=== PATIENT | female | born 1975 | race Hispanic/Latino ===

== ENCOUNTER 2018-12-30 11:43 | Observation (INO) | payer OTHER ==
[~2018-12-30] VITALS: Ht 147.3 cm; Wt 68.3 kg
--- OUTSIDE RECORDS SUMMARY | 2018-12-30 11:45 | XMS REPORT | Continuity of Care Document ---
Author Author [facility] Interface Address Unknown Phone Unavailable Problems Problem Status Onset Date Classification Date Reported Comments Source MASS Active 03/18/2016 [facility] ROUTINE Active 03/02/2016 [facility] SCREENINGN Active 02/04/2015 [facility] Final: Other Screening Mammogram 02/15/2015 [facility] Medications Medication Details Route Status Patient Instructions Ordering Provider Order Date Source Allergies, Adverse Reactions, Alerts Substance Category Reaction Severity Reaction type Status Date Reported Comments Source Immunizations Immunization Date Given Site Status Last Updated Comments Source Results Order Name Results Value Reference Range Date Interpretation Comments Source Breast Complete Uni US Breast Complete Uni US - BREAST COMPLETE UNI US/R ULTRASOUND OF RIGHT BREAST AND RIGHT AXILLA: 03/18/2016 CLINICAL: Mass abnormal mammogram, mammographic nodule/density. Comparison is made to exams dated: 03/18/2016 mammogram, 02/12/2015 mammogram and 03/12/2016 mammogram - [facility]. Color flow and real-time ultrasound of the right breast and axilla were performed. Lema scale images of the real-time examination were reviewed. All 4 quadrants, the retroareolar region and axilla are evaluated in this exam. There is a benign 1.3 cm oval shaped cyst with a circumscribed margin with internal echoes and posterior enhancement right breast at 9 o'clock that correlates with mammography. No abnormalities were seen sonographically in the right axilla. IMPRESSION: BENIGN There is no sonographic evidence of malignancy. Return to annual mammogram screening schedule is recommended. The results were reviewed with the patient. Matilde Jack M.D. jt/:03/18/2016 14:19:34 Ear Machine Operator: Sherry Dickey, [facility] This exam was dictated and interpreted by [id number] for [facility] [place]. letter sent: Normal exam Ultrasound BI-RADS: 2 Benign 03/18/2016 - - Read by: Matilde Jack MD Dictated Date/time: 03/18/16 14:19 Electronically Signed by: Matilde Jack MD 03/18/16 14:19 FINAL REPORT [facility] Digital Mammo DX Uni MA Digital Mammo DX Uni MA - DIGITAL MAMMO DX UNI MA/R UNILATERAL RIGHT DIGITAL DIAGNOSTIC MAMMOGRAM WITH CAD: 03/18/2016 CLINICAL: Mammographic Abnormality. Current study was evaluated with a Computer Aided Detection (CAD) system. Comparison is made to exams dated: 03/12/2016 mammogram and 02/12/2015 mammogram - [facility]. The tissue of the right breast is heterogeneously dense, which could obscure detection of small masses. There are benign appearing calcifications in the right breast. There also are benign appearing densities in the right breast. There is a mass in the right breast at 9 o'clock posterior depth. This correlates with the prior exam. No other significant masses or calcifications are seen in the breast. IMPRESSION: INCOMPLETE: NEEDS ADDITIONAL IMAGING EVALUATION The mass in the right breast is indeterminate. An ultrasound is recommended. SUMMARY: Ultrasound will be performed at this time; please see dedicated separate report. Matilde santana/penfausto:03/18/2016 14:12:57 Ear Machine Operator: Ani Carbone, [facility] This exam was dictated and interpreted by [id number] for [facility]. Mammogram BI-RADS: 0 Indeterminate 03/18/2016 - - Read by: Matilde Jack MD Dictated Date/time: 03/18/16 14:12 Electronically Signed by: Matilde Jack MD 03/18/16 14:12 FINAL REPORT [facility] Pelvis w Pelvis Transvaginal US Pelvis w Pelvis Transvaginal US Transabdominal and Transvaginal Pelvic ultrasound, 03/12/2016 10:46 AM CDT Ordering Physician: Oskar Vallecillo MD CLINICAL INDICATION: pelvic pain; 41-year-old female; LMP 03/02/2016; left-sided pelvic pain for 4 weeks COMPARISON: None TECHNIQUE: Real-time, grayscale and color Doppler sonographic examination was performed of the pelvis via transabdominal and transvaginal method. FINDINGS: Transabdominal imaging reveals the uterus to measure 10.9 x 4.1 x 6.5 cm. Transvaginal imaging demonstrates endometrial stripe thickness measuring 0.6 cm. No abnormal mass is visualized within the endometrial canal. Cervical nabothian cysts are present. Bilateral ovaries are normal in size and echogenicity. Right ovary measures 3 x 1.7 x 1.5 cm. Left ovary measures 3.3 x 1.9 x 2.2 cm, contains a mild debris-containing cyst measuring 1.8 cm. Normal vascularity is present in the ovaries. No free fluid is present in the pelvic cul-de-sac. IMPRESSION: Left ovarian mildly complicated debris-containing 1.8 cm cyst SL: [id number] 03/12/2016 - - Read by: Swetha Dillon MD Dictated Date/time: 03/12/16 16:40 Electronically Signed by: Swetha Dillon MD 03/12/16 16:42 FINAL REPORT [facility] Digital Mammo Screening Bethanie DE Digital Mammo Screening Bethanie DE - DIGITAL MAMMO SCREENING BETHANIE MA BILATERAL DIGITAL SCREENING MAMMOGRAM WITH CAD: 03/12/2016 CLINICAL: Routine. Current study was evaluated with a Computer Aided Detection (CAD) system. Comparison is made to exam dated: 02/12/2015 mammogram - [facility]. The tissue of both breasts is heterogeneously dense, which could obscure detection of small masses. There are benign appearing calcifications in both breasts. There also are benign appearing densities in both breasts. There is a possible mass in the right breast at 9 o'clock posterior depth. No other significant masses, calcifications, or other findings are seen in either breast. IMPRESSION: INCOMPLETE: NEEDS ADDITIONAL IMAGING EVALUATION The possible mass in the right breast is indeterminate. Right diagnostic mammogram with possible ultrasound is recommended (spot compression and lateral views). Matilde santana/penrad:03/15/2016 11:02:12 Ear Machine Operator: Lisa rWay, [facility] This exam was dictated and interpreted by [id number] for [facility]. letter sent: Additional Imaging Mammogram BI-RADS: 0 Indeterminate 03/12/2016 - - Read by: Matilde Jack MD Dictated Date/time: 03/15/16 11:02 Electronically Signed by: Matilde Jack MD 03/15/16 11:02 FINAL REPORT [facility] Digital Mammo Screening Bethanie MA Digital Mammo Screening Bethanie MA - DIGITAL MAMMO SCREENING BETHANIE MA BILATERAL FIRST EVER DIGITAL SCREENING MAMMOGRAM WITH CAD: 02/12/2015 CLINICAL: Routine. Current study was evaluated with a Computer Aided Detection (CAD) system. There are no comparison films available as this is the patient's baseline mammogram. The tissue of both breasts is heterogeneously dense, which could obscure detection of small masses. There are benign appearing calcifications in both breasts. There also are benign appearing densities in both breasts. No significant masses, calcifications, or other findings are seen in either breast. IMPRESSION: BENIGN There is no mammographic evidence of malignancy. A 1 year screening mammogram is recommended. Aspen Carlton M.D. ap/penrad:02/12/2015 10:42:57 Ear Machine Operator: Akilah Nance, [facility] This exam was dictated and interpreted by [id number] for [facility] [place]. letter sent: Normal [place] Mammogram BI-RADS: 2 Benign 02/12/2015 - - Read by: Aspen Carlton MD Dictated Date/time: 02/12/15 10:42 Electronically Signed by: Aspen Carlton MD 02/12/15 10:42 FINAL REPORT [facility] Vital Signs Vital Sign Value Date Comments Source Encounters Location Location Details Encounter Type Encounter Number Reason For Visit Attending Provider ADM Date DC Date Status Source [facility] Outpatient [id number] [place] Asum[place] 02/12/2015 02/13/2015 [facility] Outpatient [id number] Oskar Asumjareda 03/12/2016 03/13/2016 [facility] Outpatient [id number] Oskar Asumugha 03/18/2016 03/19/2016 [facility] Procedures Procedure Code Date Perfomer Comments Source
--- OUTSIDE RECORDS SUMMARY | 2018-12-30 11:46 | XMS REPORT ---
Author Author [facility] Address Unknown Phone Unavailable Care Team Providers Care [employer] Name Role Phone Unavailable Unavailable Payers Payer Name Policy Type Policy Number Effective Date Expiration Date Problems This patient has no known problems. Allergies, Adverse Reactions, Alerts Allergy Name Allergy Type Status Severity Reaction(s) Onset Date Inactive Date Treating Clinician Comments No Known Allergies DA Active U 2018-09-15 00:00:00 Medications This patient has no known medications.
--- OUTSIDE RECORDS SUMMARY | 2018-12-30 11:46 | XMS REPORT | Summary of Care ---
Author Author [facility] Organization [facility] Address Unknown Phone Unavailable Encounter HQ Encntr_alias(FIN) [id number] Date(s): 03/12/16 - 03/12/16 [facility] [address] [place] [address]- Discharge Disposition: Home Attending Physician: Oskar Vallecillo MD Referring Physician: Oskar Vallecillo MD Vital Signs No data available for this section Problem List No data available for this section Allergies, Adverse Reactions, Alerts Substance Reaction Severity Status NKDA Active Medications No data available for this section Results No data available for this section Immunizations No data available for this section Procedures No data available for this section Social History No data available for this section Assessment and Plan No data available for this section
--- OUTSIDE RECORDS SUMMARY | 2018-12-30 11:46 | XMS REPORT | Summary of Care ---
Author Organization Unknown Address Unknown Phone Unavailable Encounter HQ Encntr_alimarlin(CARMENZA) [id number] Date(s): 02/12/15 - 02/12/15 [facility] [address] [place] [address]- Final: Other Screening Mammogram Discharge Disposition: Home Physician Attending: Oskar Vallecillo MD Physician_Referring: Oskar Vallecillo MD Vital Signs No data [...]
--- OUTSIDE RECORDS SUMMARY | 2018-12-30 11:46 | XMS REPORT | Summary of Care ---
Author Author [facility] Organization [facility] Address Unknown Phone Unavailable Encounter HQ Encntr_alias(FIN) [id number] Date(s): 03/18/16 - 03/18/16 [facility] [address] [place] [address]- Discharge Disposition: Home Attending Physician: Oskar Vallecillo [...]
[2018-12-30 14:18] LABS: BASOPHILS % 0.3 % (0.0-1.0); EOSINOPHILS # (AUTO) 0.1 (0.0-0.4); EOSINOPHILS % 0.9 % (0.0-6.0); HEMATOCRIT 39.7 % (34.2-44.1); HEMOGLOBIN 13.6 g/dL (12.0-16.0); LYMPHOCYTES # (AUTO) 2.1 (1.0-3.2); LYMPHOCYTES % 26.4 % (18.0-39.1); MEAN CORPUSCULAR HEMOGLOBIN 28.8 pg (28-32); MEAN CORPUSCULAR HGB CONC 34.3 g/dL (31-35); MEAN CORPUSCULAR VOLUME 84.1 fL (81-99); MONOCYTES # (AUTO) 0.5 (0.2-0.8); MONOCYTES % 6.3 % (4.4-11.3); NEUTROPHILS # (AUTO) 5.2 (2.1-6.9); NEUTROPHILS % 65.7 % (38.7-80.0); PLATELET COUNT 251 x10e3/uL (140-360); RED BLOOD COUNT 4.72 x10e6/uL (3.6-5.1); RED CELL DISTRIBUTION WIDTH 13.5 % (11.7-14.4)
[2018-12-30 14:23] LABS: INR 0.89; PROTHROMBIN TIME 12.5 seconds (11.9-14.5)
[2018-12-30 14:24] LABS: PARTIAL THROMBOPLASTIN TIME 30.4 seconds (23.8-35.5)
[2018-12-30 14:32] LABS: ALANINE AMINOTRANSFERASE 28 IU/L (0-55); ALBUMIN/GLOBULIN RATIO 1.1 (0.8-2.0); ALKALINE PHOSPHATASE 65 IU/L (40-150); ANION GAP 11.8 mmol/L (8-16); BLOOD UREA NITROGEN 11 mg/dL (7-26); BUN/CREATININE RATIO 15 (6-25); CALCIUM 9.3 mg/dL (8.4-10.2); CARBON DIOXIDE 23 mmol/L (22-29); CHLORIDE 107 mmol/L (98-107); CREATINE KINASE 58 IU/L (29-168); CREATININE, SERUM 0.72 mg/dL (0.57-1.11); EST GLOMERULAR FILTRATION RATE > 60 ML/MIN (60-); GLUCOSE 86 mg/dL (74-118); MAGNESIUM 2.3 MG/DL (1.3-2.1); POTASSIUM 3.8 mmol/L (3.5-5.1); SODIUM 138 mmol/L (136-145)
[2018-12-30 14:37] LABS: CLARITY,URINE CLEAR (CLEAR); COLOR,URINE YELLOW (YELLOW); KETONES,URINE NEGATIVE (NEGATIVE); LEUKOCYTE ESTERASE ,URINE NEGATIVE (NEGATIVE); NITRITE,URINE NEGATIVE (NEGATIVE); PROTEIN,URINE DIPSTICK NEGATIVE (NEGATIVE)
[2018-12-30 14:38] LABS: BILIRUBIN,URINE NEGATIVE (NEGATIVE); URINE UROBILINOGEN 0.2 mg/dL (0.2 - 1)
[2018-12-30 15:00] LABS: BACTERIA,URINE FEW /HPF; EPITHELIAL CELLS,URINE MODERATE /LPF; WBC,URINE (MAN) 0-5 /HPF (0-5)
--- NOTE | 2018-12-30 15:04 | Diagnostic Imaging Report ---
Exams: Head and maxillofacial CTs without IV contrast History: Trauma will, fainted Comparison studies: None Technique: Axial images were obtained to the vertex and maxillofacial region. Coronal and sagittal images reconstructed from the axial data. Intravenous contrast: None Findings: Scalp: No abnormalities. Bones: No fractures, blastic or lytic lesions. Brain sulci: Appropriate for age. Ventricles: Normal in size and configuration. No hydrocephalus. Parenchyma: Normal no densities. No masses, hemorrhage, acute or chronic vascular insults. Sellar/suprasellar region: No abnormalities Craniocervical junction: Patent foramen magnum. No Chiari one malformation. Maxillofacial CT: Soft tissues: Right premaxillary soft tissue swelling. No retained hyperdense foreign body. Bones: No fractures or bony abnormalities. Orbits: Globes: Intact Extra or intraconal abnormalities: None. Paranasal sinuses: Clear aside from small left maxillary sinus alveolar recess retention cyst. Incidental findings: Small chronic postinfectious/inflammatory oropharyngeal tonsilloliths. IMPRESSION: Head CT: No abnormalities. Maxillofacial CT: 1. Right premaxillary soft tissue swelling. 2. No maxillofacial fracture. Signed by: Dr. Brayan Judd M.D. on 12/30/2018 3:01 PM
--- NOTE | 2018-12-30 15:25 | Diagnostic Imaging Report ---
EXAMINATION: CHEST SINGLE (PORTABLE) COMPARISON: None INDICATION: ^syncope ^20181230 ^1422 ^Y DISCUSSION: Frontal view of the chest obtained at 1425 hours. HEART AND MEDIASTINUM: The cardiomediastinal silhouette is unremarkable. LINES: None. LUNGS: The lungs are well inflated and clear. No pneumonia or pulmonary edema. PLEURA: No pleural effusion or pneumothorax. BONES AND SOFT TISSUES: No focal osseous lesion. The soft tissues are normal. IMPRESSION: No acute cardiopulmonary disease. Signed by: Dr. Genevieve Jack MD on 12/30/2018 3:22 PM
[2018-12-30] MEDS ORDERED: ASPIRIN 81 MG CHEW TAB PO ONE (16:00)
[2018-12-30] MEDS ORDERED: ONDANSETRON HCL INJ 2MG/ML 2ML 2 MG/ML VIAL IV PRN (16:00)
[2018-12-30 16:18] LABS: PREGNANCY TEST, URINE NEGATIVE (NEGATIVE)
[2018-12-30] MEDS ORDERED: ACETAMINOPHEN/CODEINE 300MG - 30MG TAB PO NR (16:30)
[2018-12-30 18:10] VITALS: BP 147/91
[2018-12-30 18:14] VITALS: BP 147/91
--- NOTE | 2018-12-30 18:28 | NUR ---
patient received awake and alert with family at side. vietnamese speaking only but daughter at bedside to translate. see admit assess. vitals stable with no distress.
--- NOTE | 2018-12-30 19:15 | NUR ---
Report received and walking rounds complete. Pt resting in bed and in no apparent distress. All safety measures ensured, bed alarm on, and call clark near.
[2018-12-30 20:00] VITALS: BP 155/77
--- NOTE | 2018-12-30 21:43 | NUR ---
Pt c/o facial pain but has no pain meds. Called Dr. Valderrama; gave orders for Tylenol 650mg q 4h prn pain, Ambien 5mg po qhs prn insomnia, Meclizine 12.5 mg po q 6h prn dizziness, Milk of magnesia 30ml po prn constipation, and Maalox 30ml po prn indigestion.
[2018-12-30] MEDS ORDERED: MAGNESIUM/ALUMINUM/SIMETHICONE 30 ML UDC PO PRN (22:00)
[2018-12-30] MEDS ORDERED: MECLIZINE HCL 12.5 MG TAB PO PRN (22:00)
[2018-12-30] MEDS ORDERED: MAGNESIUM HYDROXIDE 30 ML UDC PO PRN (22:00)
[2018-12-30] MEDS ORDERED: ZOLPIDEM TARTRATE 5 MG TAB PO PRN (22:00)
[2018-12-31] VITALS (7 sets, daily range): BP systolic 101–130; BP diastolic 56–76
[2018-12-31] MEDS: ACETAMINOPHEN 325 MG TAB PO PRN ×2 (04:40→17:39)
[2018-12-31 05:32] LABS: CREATINE KINASE 47 IU/L (29-168)
[2018-12-31 06:08] LABS: CHOL/HDL RATIO 2.7 (3.0-3.6)
[2018-12-31 06:21] LABS: FREE THYROXINE INDEX 2.7802 (1.4-3.8); HCG,QUANTITATIVE < 1.20 mIU/mL (0-10); THYROID STIMULATING HORMONE 3.282 uIU/mL (0.350-4.940)
--- NOTE | 2018-12-31 07:23 | NUR ---
Patient is awake and alertx3 , watching TV with spouse at the bedside. POC discussed in [place]ican. Patient denies any pain, SOB or palpitations. She was instructed to call for assistance as needed and verbalized understanding.
[2018-12-31] MEDS: ASPIRIN 81 MG ENTERIC COATED PO SCH (09:31)
--- NOTE | 2018-12-31 18:53 | NUR ---
Report given to oncoming shift and walking rounds done.
--- NOTE | 2018-12-31 19:06 | NUR ---
Report received and walking rounds complete. Pt resting in bed and in no apparent distress. Pt family member at bedside. Pt slovak speaking only. All safety measures ensured.
[2019-01-01] VITALS: BP 104/52
[2019-01-01 04:00] VITALS: BP 112/65
[2019-01-01] MEDS: ACETAMINOPHEN 325 MG TAB PO PRN ×3 (05:36→21:57)
[2019-01-01 08:08] VITALS: BP 106/63
[2019-01-01] MEDS: ASPIRIN 81 MG ENTERIC COATED PO SCH (09:15)
[2019-01-01] MEDS ORDERED: REGADENOSON 0.4 MG/5 ML SYR IV ONE (10:32)
--- NOTE | 2019-01-01 12:45 | NUR ---
PT ambulating in hallway at this time with assist x1, gait is steady. C/o pain to head.
--- NOTE | 2019-01-01 13:13 | NUR ---
SOCIAL WORK INITIAL ASSESSMENT [employer] Representative to bedside to discuss plan of care with patient/family. CM/SW role and care transitions discussed. Anticipated discharge plan discussed along with duration of care. CM/SW discussed patients right to make decisions in care. CM/SW work hours given. Patient lives: HOUSE WITH FAMILY Admit/Transfer: VIA ED POA/Emergency contact: SAMMIE [phone] Current/Previous Home Health: NONE PCP/Follow-up Care: AWILDA Current/Previous DME: NONE Other Services: NONE Employment Status: HOUSEWIFE Areas of Concerns: NONE Referral Needs: NONE Education Needs: NONE IMM/KATHLEEN given and signed (if applicable): NA Goal for discharge:RETURN HOME CM/SW left business card at the bedside with contact information. Name and number was also written on the patients whiteboard. Patient verbalized understanding of discussion. CM will follow-up with ongoing discharge and transition of care needs.
[2019-01-01 15:52] VITALS: BP 123/58
[2019-01-01 20:00] VITALS: BP 124/63
--- NOTE | 2019-01-01 20:20 | History and Physical ---
REASON FOR ADMISSION: Ms. Macias is a pleasant, 43-year-old, woman, who was brought to the hospital after passing out at home. HISTORY OF PRESENT ILLNESS: The patient reports that she feels she has had some palpitations over the last 6 months or so. I did not feel any palpitations today that without warning she suddenly fell down to the floor and hit her face on the floor. When she awoke, she thought she was otherwise fine, but she has told some people that she may have had some chest discomfort. She is a vague historian in [place] only. PAST MEDICAL HISTORY: Significant for previous . She denies any diabetes or hypertension. FAMILY HISTORY: She reports that her mother had some sort of an arrhythmia. PHYSICAL EXAMINATION: GENERAL: At this time shows a pleasant woman, who speaks only [place]. Has abrasions and contusion on the right side of her face and right mouth. HEENT: Pupils are equal and reactive. NECK: No jugular venous distention. No bruits. THORAX: Heart sounds S1, S2 are equal. No distinct murmurs. LUNGS: Clear. ABDOMEN: Has a healed lower midline incision. No mass or organomegaly. EXTREMITIES: Have no cyanosis, clubbing, or edema. LABORATORY DATA: EKG shows sinus rhythm. Initial laboratory studies were rather unrevealing. ASSESSMENT: 1. Rainer syncope. 2. History of palpitations. PLAN: We will monitor rhythm. Check echocardiogram and carotid Doppler scan and we will consider whether she may need EP or neurological evaluation as well. MD LUI Diggs/DILIA /[id number] cc: Edmar Ruelas MD
[2019-01-02] VITALS (8 sets, daily range): BP systolic 98–122; BP diastolic 58–73
--- NOTE | 2019-01-02 05:52 | Consultation ---
DATE OF CONSULTATION: 01/01/2019 Neurology Consult Note. HISTORY OF PRESENT ILLNESS: Ms. Macias is a 43-year-old right-handed dominant woman without known significant past medical history admitted to [facility] on December 30, 2018 with syncope. On the day of admission, the patient was standing at home when she experienced the sudden onset of dizziness, which is further described as lightheadedness. So patient immediately fell forward, landing face first on the hard floor. Ms. Macias experienced a laceration over her upper lip towards the right side as a result of the fall. Ms. Macias was reportedly unconscious for 3-4 minutes. When she regained consciousness, the patient was oriented to herself, her mother, who witnessed the event, and her home. Ms. Macias does not report chest pain or tightness, palpitations, shortness of breath, numbness or tingling or an epigastric rising sensation prior to her syncopal events. The patient has no memory of the event. However, according to the patient's mother, there was no shaking or stiffening of the arms or legs, no tongue biting, no foaming saliva, and no bladder or bowel incontinence. Ms. Macias has not experienced similar symptoms previously. The patient does report experiencing brief, lasting only a few seconds, episodes of tachycardia/palpitations for 4 or 5 days prior to her admission. The patient does not report a history of febrile seizures. There is no known family history of seizure disorder. The patient does not report prior head trauma or meningitis/encephalitis. REVIEW OF SYSTEMS: Fast or irregular heartbeat for 4 or 5 days prior to admission; dizziness, which is further described as lightheadedness and syncope. Otherwise, a 12-point review of systems is negative. PAST MEDICAL HISTORY: None. PAST SURGICAL HISTORY: section x3, bilateral tubal ligation. PAST HOSPITALIZATIONS: Surgeries/procedures as listed. FAMILY MEDICAL HISTORY: The patient's paternal and maternal grandparents are . Their medical histories are unknown. Ms. Macias's father is alive. He has a history of multiple prior strokes. The patient's mother is alive. She has a history of cardiac arrhythmia. Ms. Macias has 3 brothers and 2 sisters, all of whom are alive and healthy. The patient has 3 daughters, all of whom are alive and healthy. SOCIAL HISTORY: Ms. Macias is . She is a ipvb-ew-furf /parent. The patient does not report current or prior tobacco, alcohol or recreational drug use. HOME MEDICATIONS: Tylenol as needed. HOSPITAL MEDICATIONS: Acetaminophen, aspirin, Maalox, milk of magnesia, meclizine, Zofran and Ambien. ALLERGIES: NO KNOWN DRUG ALLERGIES. NO KNOWN FOOD ALLERGIES. NO KNOWN ALLERGIES TO LATEX. NO KNOWN ALLERGIES TO IODINE OR OTHER CONTRAST MATERIALS. PHYSICAL EXAMINATION: VITAL SIGNS: Height 58 inches, weight 151 pounds, BMI 31.6 kg/m2, blood pressure 123/58 mmHg, pulse 76 beats per minute, respiratory rate 16 breaths per minute, oxygen saturation 97% on room air. GENERAL: The patient is awake and alert, does not appear distressed. Overweight. HEENT: Normocephalic, atraumatic. Pupils are equal, round, and reactive to light. Moist mucous membranes. NECK: Supple. No appreciable thyromegaly. No appreciable carotid bruits. CARDIOVASCULAR: S1, S2, regular rate and rhythm. No murmurs, rubs, or gallops. RESPIRATORY: Clear to auscultation bilaterally. No wheezes, rhonchi, or rales. EXTREMITIES: The skin is warm and dry. No clubbing, cyanosis, or edema. The posterior tibial and dorsalis pedis pulses are 2+ and symmetric. SKIN: No rashes or lesions. NEUROLOGIC: Memory/Attention: The patient is awake and alert, oriented to person, place, time, and situation. Cranial Nerves: Cranial nerve I - not tested. Cranial nerves II, III, IV and - pupils are equal and round, reactive briskly to light (from 4 mm to 2 mm). Extraocular movements are intact. No nystagmus. Cranial nerve V - sensation to light touch and pinprick is intact in the bilateral V1 through V3 distributions. Strength in the temporalis and mastoidal muscles is within normal limits. Cranial nerves VII - the face is symmetric, as are all facial movements. Strength is within normal limits. Cranial nerve VIII - hearing is intact to finger rub bilaterally. Cranial nerves IX, X - the soft palate elevates equally and symmetrically. Cranial nerve XI - normal strength to the bilateral sternocleidomastoid and trapezius muscles. Cranial nerve XII - the tongue protrudes to midline and moves symmetrically from side to side. Strength: Bulk is normal. Strength is 5/5 in the bilateral deltoids, biceps, triceps, wrist flexors and extensors, finger flexors and extensors, intrinsic hand muscles, hip flexors, knee flexors and extensors, ankle dorsiflexion and plantarflexion, and intrinsic foot muscles. Tone is normal. DTRs: Deep tendon reflexes are 2+ and symmetric at the triceps, biceps, and brachioradialis, patellas and achilles. Plantar responses are flexor bilaterally. Sensation: Sensation is intact to light touch and pinprick in both arms and both legs. Cerebellar: Xfqdmb-qygo-yefeki and heel-victoria movements are intact without dysmetria or other impairment. Gait: Deferred. Speech: Spontaneous speech is normal without appreciable dysarthria or aphasia. Repetition is intact. Involuntary movements: None. Pronator drift: None. LABORATORY DATA: A comprehensive metabolic panel is unremarkable. Cardiac enzymes are negative x2. Total cholesterol 165, triglycerides 76, LDL cholesterol 88, HDL cholesterol 62. TSH 3.282, free T4 index 2.7802, thyroxine (T4) 8.96, T3 uptake 31.03. HCG quantitative less than 1.20. A CBC with differential and platelets is within normal limits. The coagulation profile is within normal limits. A urinalysis is unremarkable. DIAGNOSTIC STUDIES: Chest x-ray 12/30/2018: No acute cardiopulmonary disease. CT of the brain without contrast 12/30/2018: On my review, there is no evidence of recent large territorial ischemia, hemorrhage, mass or mass effect. Cerebral volumes are appropriate for age. There are no findings suggestive of chronic small vessel ischemic disease. CT of the face 12/30/2018: Right premaxillary soft tissue swelling. No maxillofacial fracture. Electrocardiogram of 12/31/2018: Normal sinus rhythm at 78 beats per minute. Echocardiogram 12/31/2018: Ejection fraction 50% to 55%. Left ventricular hypertrophy. Bilateral carotid artery ultrasound with Doppler of 12/31/2018: There is no atherosclerosis in either carotid artery system. Flow is antegrade in the bilateral vertebral arteries. ASSESSMENT/PLAN: Ms. Macias is a 43-year-old right hand dominant woman with no known past medical history, admitted to [facility] on December 30, 2018, status post syncope. The patient's neurological examination is nonfocal. Her laboratory data and other diagnostic studies have been reviewed and are documented above. There is a low suspicion for an underlying neurological disorder. No further evaluation or treatment is recommended from a neurological standpoint. Ms. Macias may be discharged to home. Thank you for this consultation. TIME SPENT: 50 minutes. Karmen Ferraro MD CP/DILIA /[id number]
[2019-01-02] MEDS ORDERED: SODIUM CHLORIDE 0.9% 1000ML 1,000 ML IV SCH ×2 (08:51→10:36)
[2019-01-02] MEDS ORDERED: FAMOTIDINE 20 MG TAB PO PRN (09:00)
[2019-01-02] MEDS: ASPIRIN 81 MG ENTERIC COATED PO SCH (09:00)
[2019-01-02] MEDS ORDERED: DIPHENHYDRAMINE HCL 25 MG CAP PO PRN (09:00)
[2019-01-02] MEDS ORDERED: MIDAZOLAM HCL 2 MG/2 ML VIAL ONE (09:26)
[2019-01-02] MEDS ORDERED: SODIUM CHLORIDE 0.9% 1000ML 1,000 ML ONE (09:27)
[2019-01-02] MEDS ORDERED: LIDOCAINE HCL 2% LOCAL 20 ML VIAL ONE (09:27)
[2019-01-02] MEDS ORDERED: IOPAMIDOL 370 MG/ML 200 ML INFUS..BTL INJ ONE ×2 (09:27→10:09)
[2019-01-02] MEDS ORDERED: HEPARIN SOD/SOD CHLORIDE 1,000 ML ONE (09:27)
[2019-01-02] MEDS ORDERED: FENTANYL CITRATE/PF 100MCG/2 ML INJ ONE (09:27)
--- NOTE | 2019-01-02 09:52 | NUR ---
Pt off unit at this time via bed, x2 assist. A&O x4, no c/o pain or SOB. VS WNL.
[2019-01-02] MEDS ORDERED: ATROPINE SULFATE 0.1 MG/ML 10ML SYR ONE (10:43)
[2019-01-02] MEDS ORDERED: ACETAMINOPHEN 325 MG TAB PO PRN (10:45)
--- NOTE | 2019-01-02 11:13 | NUR ---
Pt arrived from cath laboratory technician at this time. No s/s of bleeding. R groin femoral site CDI, site is soft, no redness or swelling noted. Will continue to monitor and assess site for bleeding.
--- NOTE | 2019-01-02 11:30 | NUR ---
Pedal pules strong bilaterally. R groin femoral site soft, no swelling or redness to site. No s/s of bleeding. Pt has no c/o pain. VS WNL.
--- NOTE | 2019-01-02 12:05 | NUR ---
No s/s of bleeding. Pedal pules strong bilaterally. R groin femoral site soft, no swelling or redness to site. Pt has no c/o pain. VS WNL. Pt to keep R leg straight per Dr. Valderrama orders until 1500 today. Pt is aware to keep leg straight and on bedrest.
--- NOTE | 2019-01-02 12:33 | NUR ---
No s/s of bleeding at this time. Pt stated she feels a little pain. Pedal pulses strong bilaterally. Pt in flat position with R leg flat.
--- NOTE | 2019-01-02 15:22 | NUR ---
Pt off bedrest at this time, able to ambulate. No s/s of bleeding, VS WNL. Pedal pulses strong bilaterally. No c/o pain. Incision site CDI, no swelling or redness noted to site.
--- NOTE | 2019-01-02 23:58 | Operative Report ---
DATE OF PROCEDURE: 01/02/2019 SURGEON: Lenny Valderrama MD PROCEDURE: Cardiac cath. INDICATION: Syncope with EKG changes during Cardiolite. PROCEDURE IN DETAIL: The patient was brought to the clinical lab clerk in a fasting and partially sedated state, given 0.5 mg Versed intravenously. The right groin was prepped with scrub and 2% Xylocaine. A 4-Belgian sheath was placed in the right common femoral artery. Cardiac cath was performed with 4-Belgian pigtail and 4-Belgian right and left Gloria catheters. Inspection of the films shows a left dominant coronary system. The right coronary being a nondominant small vessel. The left main, LAD, diagonals, circumflex, OM, and posterior descending were all without any significant plaquing or stenosis at all. The left ventricle has normal function, EF about 65%. Catheter was removed and pressure held, and she is returned to her room in stable condition. FINAL IMPRESSION: 1. Normal coronary arteries. 2. Normal left ventricular function, ejection fraction about 65%. PLAN: For medical management of probable and vasovagal problems. MD LUI Diggs/SHARIL /[id number] cc: Edmar Ruelas MD
== END 2019-01-02 16:30 | disposition home or self-care (01) ==
LOC: ER 11:43 → ERHOLD 16:12 → IMCU 18:01
PROVIDERS: ADMIT Internal Medicine Cardiovascular Disease; ATTEND Internal Medicine Cardiovascular Disease
DX: R55 Syncope and collapse (principal); Z82.49 Family history of ischemic heart disease and other diseases of the circulatory system; R07.9 Chest pain, unspecified; S00.511A Abrasion of lip, initial encounter; S00.81XA Abrasion of other part of head, initial encounter; W01.0XXA Fall on same level from slipping, tripping and stumbling without subsequent striking against object, initial encounter; Y93.89 Activity, other specified; Y92.010 Kitchen of single-family (private) house as the place of occurrence of the external cause
CPT/HCPCS: 36415 ×2; 70450; 70486; 71045; 78452; 80053; 80061; 81001; 81025; 82550 ×2; 82553 ×2; 83735; 84436; 84443; 84479; 84484 ×2; 84702; 85025; 85610; 85730; 93005 ×2; 93017; 93306; 93458; 93880; 99284; A9502; C1766; G0378 ×4; J2001; J2250; J2785; J7030; Q9967

== ENCOUNTER → 2019-03-08 | Outpatient (CLI) | payer OTHER ==
--- NOTE | 2019-03-08 10:05 | Diagnostic Imaging Report ---
Exam: Cervical spine complete History: Spondylosis Comparison: None. Findings: Cervical spine is visualized from the skull base to the top of T1 on the lateral radiograph. No acute, displaced fracture or subluxation. Soft tissue, ligamentous, and spinal cord abnormalities cannot be excluded on the basis of plain radiography. Mild disc space narrowing and anterior osteophyte complexes at C5-6 and C6-7. Neural foramina are widely patent as seen on the oblique radiographs. Atlantoaxial interval is within normal limits. Prevertebral soft tissues are of normal thickness. Impression: No acute osseous abnormality. Mild degenerative disc changes C5-6 and C6-7. Signed by: Dr. Brayan Steiner M.D. on 03/08/2019 10:02 AM
== END ==
LOC: RAD 08:45
PROVIDERS: ATTEND Internal Medicine
DX: M47.812 Spondylosis without myelopathy or radiculopathy, cervical region (principal)
CPT/HCPCS: 72050

== ENCOUNTER → 2019-05-24 | Outpatient (CLI) | payer OTHER ==
--- NOTE | 2019-05-24 09:00 | Diagnostic Imaging Report ---
Exam: Pelvic ultrasound. Technique: Transabdominal and endovaginal moeller scale and Color doppler images of the pelvis. History: Left lower quadrant pain Comparison: None. Findings: Transabdominal and endovaginal sonographic evaluation of the pelvis. The uterus is anteverted in position, measuring 9.9 x 4.6 x 6.7cm. Endometrial stripe thickness is 8 millimeters. The right ovary measures 2.4 x 1.5 x 2.1 cm and appears unremarkable. The left ovary measures 3.2 x 1.7 x 1.5 cm and appears unremarkable.No free fluid in the pelvis. Multiple Nabothian cysts are seen in the cervix, measuring up to 10 mm. Impression: Cervical no bulky and cyst. Otherwise, unremarkable pelvic ultrasound. Signed by: Renata Valencia MD on 05/24/2019 8:56 AM
== END ==
LOC: US 07:38
PROVIDERS: ATTEND Internal Medicine
DX: R10.32 Left lower quadrant pain (principal); N88.8 Other specified noninflammatory disorders of cervix uteri
CPT/HCPCS: 76830; 76856

== ENCOUNTER 2022-09-27 21:53 | Emergency (ER) | payer OTHER ==
[~2022-09-27] VITALS: Ht 147.3 cm; Wt 68.0 kg
[2022-09-27] MEDS ORDERED: KETOROLAC TROMETHAMINE 30 MG/ML VIAL IV STA (22:12)
[2022-09-27 22:20] LABS: BASOPHILS % 0.3 % (0.0-1.0); EOSINOPHILS # (AUTO) 0.2 (0.0-0.4); EOSINOPHILS % 2.4 % (0.0-6.0); HEMATOCRIT 40.2 % (34.2-44.1); HEMOGLOBIN 13.1 g/dL (12.0-16.0); LYMPHOCYTES % 40.9 % (18.0-39.1); MEAN CORPUSCULAR HGB CONC 32.6 g/dL (31-35); MEAN CORPUSCULAR VOLUME 88.9 fL (81-99); MONOCYTES # (AUTO) 0.4 (0.2-0.8); MONOCYTES % 5.8 % (4.4-11.3); NEUTROPHILS # (AUTO) 3.7 (2.1-6.9); NEUTROPHILS % 50.1 % (38.7-80.0); PLATELET COUNT 254 x10e3/uL (140-360); RED BLOOD COUNT 4.52 x10e6/uL (3.6-5.1); RED CELL DISTRIBUTION WIDTH 13.2 % (11.7-14.4)
[2022-09-27 22:39] LABS: ANION GAP 14.7 mmol/L (8-16); CALCIUM 9.3 mg/dL (8.4-10.2); CREATININE, SERUM 0.8 mg/dL (0.57-1.11); POTASSIUM 3.7 mmol/L (3.5-5.1)
[2022-09-27 23:02] LABS: CLARITY,URINE CLOUDY (CLEAR); COLOR,URINE YELLOW (YELLOW)
[2022-09-27 23:03] LABS: KETONES,URINE NEGATIVE (NEGATIVE); LEUKOCYTE ESTERASE ,URINE 1+ (NEGATIVE); NITRITE,URINE NEGATIVE (NEGATIVE); PROTEIN,URINE DIPSTICK NEGATIVE (NEGATIVE); URINE UROBILINOGEN 0.2 mg/dL (0.2 - 1)
[2022-09-27 23:08] LABS: BACTERIA,URINE MANY /HPF; WBC,URINE (MAN) 21-50 /HPF (0-5)
[2022-09-27 23:09] LABS: EPITHELIAL CELLS,URINE MANY /LPF
[2022-09-28] LABS: BILIRUBIN,DIRECT 0.1 mg/dL (0.0-0.5)
[2022-09-28 02:36] VITALS: BP 127/84
[2022-09-28] MEDS ORDERED: CEFDINIR300 MG PO (02:36)
[2022-09-28] MEDS ORDERED: KETOROLAC TROME10 MG PO (02:36)
== END 2022-09-28 02:40 | disposition home or self-care (01) ==
LOC: ER 22:14
DX: R10.11 Right upper quadrant pain (principal); N39.0 Urinary tract infection, site not specified; K76.0 Fatty (change of) liver, not elsewhere classified
CPT/HCPCS: 36415; 74176; 76705; 80048; 80076; 81001; 83690; 84702; 85025; 99284; J1885